=== PATIENT | female | born 1960 | race Two or more races ===

== ENCOUNTER 2018-07-28 23:50 | Emergency (ER) | payer OTHER ==
[~2018-07-28] VITALS: Ht 162.6 cm; Wt 68.6 kg
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
[2018-07-29] MEDS ORDERED: METHOCARBAMOL 750 MG TABLET PO ONE (00:30)
[2018-07-29] MEDS ORDERED: IBUPROFEN 200 MG TABLET PO ONE (00:30)
[2018-07-29] MEDS ORDERED: METHOCARBAMOL 750 MG TABLET ONE (00:35)
[2018-07-29] MEDS ORDERED: IBUPROFEN 800 MG TABLET ONE (00:35)
[2018-07-29 01:09] VITALS: BP 110/71
--- NOTE | 2018-07-29 01:15 | NUR ---
TO ROOM TO ASSIST PT IN WHEELCHAIR, REFUSING TO LEAVE AT THIS TIME. WILL REATTEMPT DISCHARGE SHORTLY
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
== END 2018-07-29 01:44 | disposition home or self-care (01) ==
LOC: ED 07-29 00:56
DX: S39.012A Strain of muscle, fascia and tendon of lower back, initial encounter (principal); M54.2 Cervicalgia; V43.52XA Car driver injured in collision with other type car in traffic accident, initial encounter; Y93.89 Activity, other specified; Y92.89 Other specified places as the place of occurrence of the external cause; Y99.8 Other external cause status
CPT/HCPCS: 99283